=== PATIENT | female | born 1930 | race Caucasian/White ===

== ENCOUNTER → 2017-09-28 | Outpatient (REF) | payer OTHER ==
[2017-09-28 15:49] LABS: ALBUMIN 4.1 GM/DL (3.2-5.2); ALBUMIN/GLOBULIN RATIO 1.21 (1.00-1.93); ALKALINE PHOSPHATASE 82 U/L (45-117); ALT/SGPT 27 U/L (12-78); AMYLASE 210 U/L (25-115); ANION GAP 4 MEQ/L (8-16); AST/SGOT 14 U/L (7-37); BILIRUBIN,TOTAL 0.5 MG/DL (0.2-1.0); BLOOD UREA NITROGEN 22 MG/DL (7-18); CALCIUM LEVEL 9.4 MG/DL (8.8-10.2); CARBON DIOXIDE LEVEL 31 MEQ/L (21-32); CHLORIDE LEVEL 103 MEQ/L (98-107); CREATININE FOR GFR 1.04 MG/DL (0.55-1.30); GLOMERULAR FILTRATION RATE 53.5 (>32); GLUCOSE, FASTING 96 MG/DL (70-100); LIPASE 3405 U/L (73-393); POTASSIUM SERUM 4.5 MEQ/L (3.5-5.1); SODIUM LEVEL 138 MEQ/L (136-145); TOTAL PROTEIN 7.5 GM/DL (6.4-8.2)
== END ==
LOC: M SFHCPLAZ 13:32
DX: Z87.898 Personal history of other specified conditions (principal)
CPT/HCPCS: 82150

== ENCOUNTER → 2020-10-11 | Outpatient (REF) | payer MEDICARE, MEDICAID ==
[~2020-10-11] MED LIST: ACET65TA PO; ASPI81TA83 PO; BISA10SU2 RE; BISA5TA PO; CALC12502 PO; COUM1TAB18 OR; DETR4CAP PO; LIDO5DIS EX; MULTIVIT PO; PERC5TAB8 OR; SIMV20TA2 PO; TIZA2TAB PO; TOPI25TA2 PO; TRAM50TA2 PO; ZINC220C PO; refresh eye drops OU
== END ==
LOC: M LAB REF 17:14
PROVIDERS: ATTEND Dermatology
DX: C44.329 Squamous cell carcinoma of skin of other parts of face (principal)
CPT/HCPCS: 11102; 88305; 88341; 88342; G0463